=== PATIENT | female | born 1970 | race Caucasian/White ===

== ENCOUNTER 2022-06-30 08:37 | Day surgery (SDC) | payer OTHER ==
[2022-06-30] MEDS ORDERED: Bupivacaine HCl 0.5%/Epinephrine 1:200,000/PF 30 ml Vial ONE (09:57)
[2022-06-30] MEDS ORDERED: fentaNYL 50 mcg/mL 1 mL Vial ONE ×2 (10:24→11:48)
[2022-06-30] MEDS ORDERED: fentaNYL PF 100 MCG/2 ML SYRINGE ONE (10:24)
[2022-06-30] MEDS ORDERED: Ketorolac Tromethamine 30 MG/ML VIAL ONE (10:26)
[2022-06-30] MEDS ORDERED: Sodium Chloride 0.9% 100 ML ONE (10:26)
[2022-06-30] MEDS ORDERED: Piperacillin/Tazobactam 3.375 GM VIAL ONE (10:26)
[2022-06-30] MEDS ORDERED: Succinylcholine Chloride 100 MG/5 ML SYRINGE FS ONE (10:42)
[2022-06-30] MEDS ORDERED: Dexamethasone 20 MG/5 ML VIAL ONE (10:42)
[2022-06-30] MEDS ORDERED: Vecuronium 10 MG VIAL ONE (10:42)
[2022-06-30] MEDS ORDERED: Ondansetron PF 4 MG/2 ML Vial ONE (10:42)
[2022-06-30] MEDS ORDERED: PROPOFOL 200 MG/20 ML VIAL ONE (10:42)
[2022-06-30] MEDS ORDERED: Lidocaine 1% PF 5 ML VIAL ONE (10:42)
[2022-06-30] MEDS ORDERED: SUGAMMADEX SODIUM 200 MG/2 ML VIAL ONE (11:15)
[2022-06-30] MEDS ORDERED: Promethazine HCl 25 MG/ML VIAL ONE (11:48)
[2022-06-30] MEDS ORDERED: traMADol HCl 50 MG TAB ONE (13:00)
== END 2022-06-30 13:45 | disposition home or self-care (01) ==
LOC: SDC 08:37
PROVIDERS: ATTEND Specialist
PROC: 0DTJ4ZZ Resection of Appendix, Percutaneous Endoscopic Approach (ICD-10-PCS; principal; 2022-06-30)
DX: K35.80 Unspecified acute appendicitis (principal); F17.210 Nicotine dependence, cigarettes, uncomplicated; Z98.84 Bariatric surgery status
CPT/HCPCS: 88304; A4649; C1713; J1100; J1885; J2405; J2543; J2550; J2704; J3010; J3490